=== PATIENT | female | born 1970 | race Native Hawaiian/Other Pacific Islander ===

== ENCOUNTER 2017-05-11 10:55 | Emergency (ER) | payer MEDICAID, OTHER ==
[2017-05-11 10:57] VITALS: BMI 24.3
--- NOTE | 2017-05-11 11:18 | C.PDOC ---
History Of Present Illness 47 yo female w/o significant PMHx come in for evaluation of left sided chest pain radiating to epigastric and midback area pain developed for past 5 days. Pt reports, pain is gradually improving over time " want to check it". Pt admits , pain is localized mostly over left anterior chest wall, worse with movement. Otherwise, pt denies recent illness, headache, dizziness, neck pain, OB, cough, dyspnea, palpitation, diaphoresis, abd. pain, N/V/D, UTI sx, denies previous hx of card. ds, denies BCP use, denies B/L calf pain. Pt has no risk factors for DVT, PE. Time Seen by Provider: 05/11/17 10:59 Chief Complaint (Nursing): Chest Pain History Per: Patient History/Exam Limitations: no limitations Onset/Duration Of Symptoms: Days Current Symptoms Are (Timing): Still Present Quality: "Pain" Associated Symptoms: denies: Nausea, Dyspnea, Diaphoresis, Syncope Modifying Factors: None Exacerbating Factors: Movement Alleviating Factors: None Recent travel outside of the [place]: No Additional History Per: Patient Past Medical History Reviewed: Historical Data, Nursing Documentation, Vital Signs Vital Signs: Last Vital Signs Temp 98.8 F 05/11/17 13:51 Pulse 78 05/11/17 13:51 Resp 20 05/11/17 13:51 BP 106/70 05/11/17 13:51 Pulse Ox 99 05/11/17 13:51 Family History: States: Unknown Family Hx - Social History Hx Tobacco Use: No Hx Alcohol Use: No Hx Substance Use: No - Immunization History Hx Tetanus Toxoid Vaccination: No Hx Influenza Vaccination: No Hx Pneumococcal Vaccination: No Review Of Systems Except As Marked, All Systems Reviewed And Found Negative. Constitutional: Negative for: Fever, Chills Cardiovascular: Positive for: Chest Pain. Negative for: Palpitations, Edema, Light Headedness Respiratory: Negative for: Cough, Shortness of Breath, Wheezing Gastrointestinal: Negative for: Nausea, Vomiting, Diarrhea Musculoskeletal: Positive for: Back Pain. Negative for: Neck Pain Neurological: Negative for: Weakness, Numbness, Headache, Dizziness Physical Exam - Physical Exam Appears: Well, Non-toxic, No Acute Distress Skin: Normal Color, Warm, Dry, No Rash Head: Normacephalic Eye(s): bilateral: PERRL Nose: No Discharge Oral Mucosa: Moist, No Drooling Tongue: Normal Appearing Lips: Normal Appearing Throat: No Erythema, No Drooling Neck: Trachea Midline, Supple Chest: Symmetrical, No Deformity, Tenderness (mild reproducible left anterior chest wall), No Ecchymosis, No Subcutaneous Emphysema Cardiovascular: Rhythm Regular, No Friction Rub, No Murmur, No JVD Respiratory: No Decreased Breath Sounds, No Accessory Muscle Use, No Stridor, No Wheezing Gastrointestinal/Abdominal: Soft, No Tenderness, No Distention, No Guarding, No Rebound Back: No CVA Tenderness, No Vertebral Tenderness, No Paraspinal Tenderness Extremity: Normal ROM, No Pedal Edema, No Deformity Neurological/Psych: Oriented x3, Normal Speech ED Course And Treatment - Laboratory Results Result Diagrams: 05/11/17 12:14 05/11/17 12:14 Lab Interpretation: Normal ECG: Interpreted By Me, Viewed By Me (and ED attending) ECG Rhythm: Sinus Rhythm ECG Interpretation: Normal Interpretation Of ECG: SR@97/min, NAD, no acute T wave or ST-T changes. O2 Sat by Pulse Oximetry: 100 Pulse Ox Interpretation: Normal - Radiology CXR: Interpreted by Me, Viewed By Me CXR Interpretation: Yes: No Acute Disease Progress Note: Blood work, urinalysis, EKG, CXR ordered and reviewed. Pt was given pepcid, and Toradol. On re-evaluation, pt is asymptomatic, afebrile, hemodynamicaly stable. Non-toxic. PulsOx 100% RA. ENT: no acute findings. neck: Supple, (-) JVD, (-) carotid bruits B/L. Lungs: CTA B/L, BS equal B/L. CS: (+)S1S2, reg. Abd: benign,. Back: (-) CVA tenderness,. Neuorlogicaly intact. Blood work review- normal, Troponin and D-Dimer- negative. CXR, EKG- no acute findings. Pt has clinical findings c/w chest pain, nos. Pt advised and ref. to f/u with PMD, card in 2-3 days for re-eval. return to ED if any worsening or new changes. Disposition Counseled Patient/Family Regarding: Studies Performed, Diagnosis, Need For Followup - Disposition Referrals: [facility] [Outside] Disposition: HOME/ ROUTINE Disposition Time: 13:04 Condition: STABLE Additional Instructions: FOLLOW UP WITH PMD, CARDIOLOGY IN 2-3 DAYS FOR RE-EVALUATION. RETURN TO ED IF ANY WORSENING OR NEW CHANGES,. 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 - Scribe Statement The provider has reviewed the documentation as recorded by the Scribe Venancio Aquino All medical record entries made by the Ariesibbonnie were at my direction and personally dictated by me. I have reviewed the chart and agree that the record accurately reflects my personal performance of the history, physical exam, medical decision making, and the department course for this patient. I have also personally directed, reviewed, and agree with the discharge instructions and disposition.
[2017-05-11 12:17] LABS: BASO # 0.1 K/uL (0.0-0.2); BASO % 0.6 % (0.0-2.0); EOS # 0.1 K/uL (0.0-0.7); EOS % 0.6 % (0.0-4.0); HEMOGLOBIN 12.6 g/dL (11.0-16.0); LYMPH # 1.9 K/uL (1.0-4.3); LYMPH % 18.9 % (20.0-40.0); MEAN CELL VOLUME 89.1 fL (81.0-99.0); MEAN CORPUSCULAR HEMOGLOBIN 30.9 pg (27.0-31.0); MEAN CORPUSCULAR HGB CONC 34.7 g/dL (33.0-37.0); MEAN PLATELET VOLUME 8.1 fL (7.2-11.7); MONO # 1.1 K/uL (0.0-0.8); MONO % 10.9 % (0.0-10.0); NEUT # 7.1 K/uL (1.8-7.0); RBC 4.06 Mil/uL (3.80-5.20); RED CELL DISTRIBUTION WIDTH 12.5 % (11.5-14.5); WHITE BLOOD COUNT 10.3 K/uL (4.8-10.8)
[2017-05-11 12:26] LABS: SQUAMOUS EPITHIAL 1 /hpf (0-5); URINE BILIRUBIN NEGATIVE (NEGATIVE); URINE BLOOD 2+ (NEGATIVE); URINE CLARITY Clear (Clear); URINE COLOR Colorless (YELLOW); URINE GLUCOSE (UA) NORMAL (Normal); URINE LEUKOCYTE ESTERASE NEG Leu/uL (Negative); URINE NITRATE NEGATIVE (NEGATIVE); URINE PROTEIN NEGATIVE (NEGATIVE); URINE UROBILINOGEN NORMAL mg/dL (0.2-1.0)
[2017-05-11 12:31] LABS: ALB/GLOB RATIO 1.2 (1.0-2.1); ALBUMIN 4.3 g/dL (3.5-5.0); ALT/SGPT 34 U/L (9-52); AST/SGOT 26 U/L (14-36); BLOOD UREA NITROGEN 10 mg/dL (7-17); CALCIUM 9.3 mg/dl (8.6-10.4); GFR AFRICAN-AMERICAN > 60; GFR NON-AFRICAN AMERICAN > 60
[2017-05-11 12:41] LABS: INR 1.1; PARTIAL THROMBOPLASTIN TIME 29 SECONDS (21-34); PROTHROMBIN TIME 12.3 SECONDS (9.7-12.2)
[2017-05-11 13:43] LABS: D DIMER < 200 ng/mlDDU (0-243)
[2017-05-11 13:52] VITALS: BP 106/70; PULSE 78; RESP 20; TEMP 98.8
--- NOTE | 2017-05-11 15:38 | RAD ---
HISTORY: chest pain COMPARISON: No prior. TECHNIQUE: Chest PA and lateral FINDINGS: LUNGS: No active pulmonary disease. PLEURA: No significant pleural effusion identified. No pneumothorax apparent. CARDIOVASCULAR: Normal. OSSEOUS STRUCTURES: No significant abnormalities. VISUALIZED UPPER ABDOMEN: Normal. OTHER FINDINGS: None. IMPRESSION: No active disease.
[2017-05-11 17:09] VITALS: O2SAT 100
== END 2017-05-11 14:28 | disposition home or self-care (01) ==
LOC: C.ER 10:55
DX: R07.9 Chest pain, unspecified (principal)
CPT/HCPCS: 71046; 80053; 81001; 84484; 85025; 85378; 85610; 85730; 96374; 96375; 99283; J1885

== ENCOUNTER 2017-08-17 17:17 | Emergency (ER) | payer MEDICAID ==
[2017-08-17 17:24] VITALS: BMI 25.6
[2017-08-17 17:26] VITALS: BP 134/82; PULSE 77; TEMP 97.8; O2SAT 100
--- NOTE | 2017-08-17 17:51 | C.PDOC ---
History Of Present Illness 47 year old patient presents to the emergency department with complaints of persistent neck pain for the last two weeks; pt feels like she has bumps on her neck. Her pain is associated with movement; denies numbness, tingling, trauma, or fever. Patient also states that she has had rectal pain with bowel movements , but denies abdominal pain or hard bowel movements. Patient declined a rectal exam. Time Seen by Provider: 08/17/17 17:31 Chief Complaint (Nursing): Abnormal Skin Integrity History Per: Patient, Family (daughter) History/Exam Limitations: language barrier Onset/Duration Of Symptoms: Days (2 weeks) Current Symptoms Are (Timing): Still Present Location Of Injury: Right: Neck, Left: Neck Quality Of Symptoms: Swollen Past Medical History Reviewed: Historical Data, Nursing Documentation, Vital Signs Vital Signs: Last Vital Signs Temp 97.8 F 08/17/17 17:24 Pulse 77 08/17/17 17:24 Resp 16 08/17/17 18:07 BP 134/82 08/17/17 17:24 Pulse Ox 100 08/18/17 21:32 - Medical History PMH: No Chronic Diseases Surgical History: No Surg Hx Family History: States: No Known Family Hx - Social History Hx Tobacco Use: No Hx Alcohol Use: No Hx Substance Use: No - Immunization History Hx Tetanus Toxoid Vaccination: No Hx Influenza Vaccination: No Hx Pneumococcal Vaccination: No Review Of Systems Constitutional: Negative for: Fever, Chills Gastrointestinal: Positive for: Rectal Pain (with bm). Negative for: Vomiting, Abdominal Pain, Diarrhea Musculoskeletal: Positive for: Neck Pain Neurological: Negative for: Numbness, Other (tingling) Physical Exam - Physical Exam Appears: Non-toxic, No Acute Distress Skin: Warm, Dry, No Ecchymosis, Other (no bumps noted on neck) Head: Atraumatic, Normacephalic Eye(s): bilateral: Normal Inspection Neck: Normal ROM, No Midline Cervical Tenderness, No Step Off Deformity Cardiovascular: Rhythm Regular Respiratory: No Decreased Breath Sounds, No Wheezing Gastrointestinal/Abdominal: Soft, No Tenderness Rectal: Other (pt declined exam) Extremity: Normal ROM Neurological/Psych: Oriented x3, Normal Speech, Normal Cognition, Normal Motor, Normal Sensation ED Course And Treatment O2 Sat by Pulse Oximetry: 100 (RA) Pulse Ox Interpretation: Normal Medical Decision Making Medical Decision Makin47 y/o female with 2 weeks neck pain with movement, no fever, no trauma, normal exam. rectal pain with bm, no rectal exam done as pt declined. d/c with tylenol. f/u pmd. Disposition Counseled Patient/Family Regarding: Diagnosis, Need For Followup - Disposition Disposition: HOME/ ROUTINE Disposition Time: 17:53 Condition: GOOD Additional Instructions: Please take Tylenol for pain in neck. Please follow up on medical clinic; call on Saturday for an appointment, Return to ER for any worsening rectal pain, abdominal pain, bleeding or any other concerns. Drink increased water, eat high fiber foods to keep stool soft. 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 - Scribe Statement The provider has reviewed the documentation as recorded by the Scribe (Vincent Magdaleno) All medical record entries made by the Scribe were at my direction and personally dictated by me. I have reviewed the chart and agree that the record accurately reflects my personal performance of the history, physical exam, medical decision making, and the department course for this patient. I have also personally directed, reviewed, and agree with the discharge instructions and disposition.
[2017-08-17 18:07] VITALS: RESP 16
== END 2017-08-17 18:06 | disposition home or self-care (01) ==
LOC: C.ER 17:17
DX: S13.9XXA Sprain of joints and ligaments of unspecified parts of neck, initial encounter (principal); X58.XXXA Exposure to other specified factors, initial encounter; Y92.9 Unspecified place or not applicable; K62.89 Other specified diseases of anus and rectum